=== PATIENT | female | born 1985 | race Caucasian/White ===

== ENCOUNTER → 2017-06-29 15:52 | Outpatient (CLI) | payer BC, SELFPAY ==
[2017-07-04 14:47] LABS: HPV APTIMA, High Risk Negative (Negative)
== END ==
PROVIDERS: Visit Provider Obstetrics & Gynecology
DX: Z12.4 Encounter for screening for malignant neoplasm of cervix (principal)
CPT/HCPCS: 88175; G0145

== ENCOUNTER → 2017-12-30 11:40 | Outpatient (CLI) | payer BC, SELFPAY ==
[2017-12-30 13:54] LABS: Absolute Lymphocyte Count 2.16 X10^3/ul (0.83-4.51); Absolute Neutrophil Count 2.7 X10^3/uL (2.0-7.7); Basophil# 0.09 X10^3/uL; Basophil% 1.6 % (0-1); Eosinophil# 0.26 X10^3/uL; Eosinophils% 4.7 % (0-5); Hematocrit 40.2 % (37-47); Hemoglobin 13.2 g/dl (12.0-15.0); Lymphocyte # 2.16 X10^3/ul (4.0); Lymphocyte % 39.1 % (19-41); Mean Corp Hgb Conc 32.8 g/gl (32-36); Mean Corpuscular Hgb 28.7 pg (27.0-32.0); Mean Corpuscular Volume 87.4 fL (81-99); Mean Platelet Vol. 12.5 fl (6.2-12.0); Monocyte# 0.31 X10^3/uL; Monocyte% 5.6 % (0-10); Platelet Count 177 K/mm3 (150-450); RBC Distribution Width CV 12.5 % (11.6-14.6); RBC Distribution Width SD 40.2 fl (35.1-43.9); White Blood Count 5.5 K/mm3 (4.4-11.0)
[2017-12-30 13:55] LABS: POSITIVE COUNT NO; POSITIVE DIFFERENTIAL NO; POSITIVE MORPHOLOGY NO
[2017-12-30 15:15] LABS: ALB/GLOB Ratio 1.1 RATIO (0.9-2.4); AST(SGOT) 15 U/L (15-37); Alanine Aminotransfer ALT/SGPT 17 U/L (13-56); Albumin, Serum 3.9 g/dL (3.2-5.0); Alkaline Phosphatase 34 U/L (45-117); Anion Gap 11 (5-15); BUN 9 mg/dL (7-18); BUN/Creat Ratio 11.2 RATIO (10-20); Calcium,Total 8.8 mg/dL (8.5-10.1); Chloride 103 mmol/L (98-107); EST Glomerular Filtration Rate 87 mL/min (>60); Est Glom Filt Rate - Afr Amer 105 mL/min (>60); Ferritin 10 ng/mL (8-252); Globulin 3.5 g/dL (2.2-4.2); Glucose 70 mg/dL (74-106); Potassium 3.6 mmol/L (3.5-5.1); Protein, Total 7.4 g/dL (6.4-8.2); Sodium Level 141 mmol/L (136-145); Thyroid Stim Hormone (TSH) 1.57 uIU/mL (0.358-3.74)
[2018-01-02 20:13] LABS: Endomysial Antibody IgA Negative (Negative)
[2018-01-03 12:58] LABS: Deamidated Gliadin IgA 3 units (0-19); Deamidated Gliadin IgG 3 units (0-19); Immunoglobulin A 226 mg/dL (87-352); t-Transglutaminase IgA <2 U/mL (0-3)
[2018-01-03 16:09] LABS: Alternaria alternata 0.35 kU/L (Class I); Aspergillus fumigatus <0.10 kU/L (Class 0); Bahia Grass <0.10 kU/L (Class 0); Beef <0.10 kU/L (Class 0); Bermuda Grass <0.10 kU/L (Class 0); Bluegrass, Kentucky <0.10 kU/L (Class 0); Cat Hair/Dander, Standard 1.44 kU/L (Class III); Cedar, Mountain <0.10 kU/L (Class 0); Cladosporium herbarum <0.10 kU/L (Class 0); Cockroach, American <0.10 kU/L (Class 0); Corn <0.10 kU/L (Class 0); D farinae Mite <0.10 kU/L (Class 0); D pteronyssinus <0.10 kU/L (Class 0); Dog Epithelia <0.10 kU/L (Class 0); Egg, Whole <0.10 kU/L (Class 0); Elm, American White <0.10 kU/L (Class 0); Hazelnut Tree <0.10 kU/L (Class 0); Hickory, White <0.10 kU/L (Class 0); Johnson Grass <0.10 kU/L (Class 0); Maple/Box Elder <0.10 kU/L (Class 0); Milk (Cow) 0.53 kU/L (Class I); Mucor racemosus <0.10 kU/L (Class 0); Mugwort <0.10 kU/L (Class 0); Mulberry, White <0.10 kU/L (Class 0); Nettle <0.10 kU/L (Class 0); Oak, White <0.10 kU/L (Class 0); Peanut <0.10 kU/L (Class 0); Penicillium chrysogen <0.10 kU/L (Class 0); Pigweed, Rough <0.10 kU/L (Class 0); Plantain, English <0.10 kU/L (Class 0); Pork <0.10 kU/L (Class 0); Ragweed, Short/Common <0.10 kU/L (Class 0); Sheep Sorrel(Dock) <0.10 kU/L (Class 0); Soybean <0.10 kU/L (Class 0); Stemphylium herbarum <0.10 kU/L (Class 0); Sweet Gum <0.10 kU/L (Class 0); Sycamore, American <0.10 kU/L (Class 0); Wheat 0.18 kU/L (Class 0/I)
[2018-01-04 10:38] LABS: Chocolate <0.10 kU/L (Class 0)
== END ==
PROVIDERS: Family Provider Family Medicine; PCP Family Medicine; Visit Provider Family Medicine
DX: K20.0 Eosinophilic esophagitis (principal); J30.9 Allergic rhinitis, unspecified; R51 Headache
CPT/HCPCS: 36415; 80053; 82728; 82746; 82784; 83516; 84443; 85025; 86003; 86005; 86255

== ENCOUNTER → 2018-05-19 11:45 | Outpatient (CLI) | payer BC, SELFPAY ==
[2016-05-12 11:44] VITALS: BMI 30.9
[2018-05-19 15:05] LABS: Ferritin 35 ng/mL (8-252); Iron 63 ug/dL (50-170); Iron Binding Capacity,Total 302 ug/dL (250-450)
== END ==
PROVIDERS: Family Provider Family Medicine; PCP Family Medicine; Visit Provider Family Medicine
DX: E61.1 Iron deficiency (principal)
CPT/HCPCS: 36415; 82728; 83540; 83550

== ENCOUNTER → 2018-10-09 15:45 | Outpatient (CLI) | payer BC, SELFPAY ==
--- NOTE | 2018-10-09 | EGD_PTH ---
PATIENT: EUNICEJULY NEL LOC: [facility] U#:[id number] AGE/SX: 40/F ROOM: RE10/09/[address]: Dr. Renato Portillo MD : 1985 BED: DIS: SPEC #: [id number] RECD: 10/09/18 15:15 STATUS: NANY CARREON #: [id number] SACHIN: 10/09/18 00:[address]: Renato Portillo DEPT: SURGICAL PATHOLOGY RECD BY: Jin Douglas ENTERED: 10/10/18 09:34 SP TYPE: EGD BIOPSY OT DR: Dr. Tom Weems MD [facility] Tissues: Esophagus, NOS Procedures: Surgery Specimen Level IV HEADER OPERATION: EGD with biopsy PRE-OP DIAGNOSIS: History of EE TISSUE SUBMITTED: Esophagus biopsy, rule out active EE MICROSCOPIC DIAGNOSIS Esophagus, biopsy: Hypertrophic squamous esophageal mucosa with focally increased eosinophils, consistent with active eosinophilic esophagitis. Eosinophil count focally up to 25-30 eosinophils / HPF. No glandular mucosa present. Clinical correlation is indicated. FA:rena 10/11/18 MICROSCOPIC DESCRIPTION Slides are reviewed. GROSS DESCRIPTION Received in fixative is one container labeled with the patient's name and designated esophagus. The specimen consists of multiple pinkish-huston biopsy fragments measuring 1 to 2 mm in greatest dimension. The specimen is totally submitted in one cassette. / FA:rena 10/10/18 TC:3 CPT: 97019
== END ==
PROVIDERS: Family Provider Family Medicine; PCP Family Medicine; Referring Provider Internal Medicine Gastroenterology; Visit Provider Internal Medicine Gastroenterology
DX: Z87.19 Personal history of other diseases of the digestive system (principal)
CPT/HCPCS: 88305

== ENCOUNTER → 2018-10-23 17:23 | Outpatient (CLI) | payer BC, SELFPAY ==
[2016-05-12 11:44] VITALS: BMI 30.9
== END ==
PROVIDERS: Family Provider Family Medicine; PCP Family Medicine; Visit Provider Nurse Practitioner Family
DX: R35.0 Frequency of micturition (principal)
CPT/HCPCS: 87086; 87088; 87186

== ENCOUNTER → 2018-11-16 11:35 | Outpatient (CLI) | payer BC, SELFPAY ==
[2016-05-12 11:44] VITALS: BMI 30.9
[2018-11-16 14:05] LABS: Absolute Lymphocyte Count 2.42 X10^3/uL (0.83-4.51); Absolute Neutrophil Count 3.1 X10^3/uL (2.0-7.7); Basophil# 0.07 X10^3/uL; Basophil% 1.1 % (0-1); Eosinophil# 0.22 X10^3/uL; Eosinophils% 3.4 % (0-5); Hematocrit 41.3 % (37-47); Hemoglobin 14.1 g/dL (12.0-15.0); Lymphocyte # 2.42 X10^3/ul (4.0); Lymphocyte % 37.9 % (19-41); Mean Corp Hgb Conc 34.1 g/dL (32-36); Mean Corpuscular Hgb 30.3 pg (27.0-32.0); Mean Corpuscular Volume 88.6 fL (81-99); Mean Platelet Vol. 12.3 fl (6.2-12.0); Monocyte# 0.52 X10^3/uL; Monocyte% 8.2 % (0-10); NRBC Flagged by Analyzer 0 % (0-5); Neutrophil # 3.13 X10^3/uL (2.7-7.7); Neutrophil % 49.1 % (47-70); Platelet Count 157 K/mm3 (150-450); RBC Distribution Width CV 11.9 % (11.6-14.6); RBC Distribution Width SD 38.5 fl (35.1-43.9); Red Blood Count 4.66 M/mm3 (4.2-5.4); White Blood Count 6.4 K/mm3 (4.4-11.0)
[2018-11-16 14:26] LABS: Vitamin B12 417 pg/mL (211-911)
[2018-11-16 14:59] LABS: ALB/GLOB Ratio 1.1 RATIO (0.9-2.4); AST(SGOT) 14 U/L (15-37); Alanine Aminotransfer ALT/SGPT 22 U/L (13-56); Albumin, Serum 3.9 g/dL (3.2-5.0); Alkaline Phosphatase 23 U/L (45-117); Anion Gap 7 (5-15); BUN 14 mg/dL (7-18); BUN/Creat Ratio 15.5 RATIO (10-20); Chloride 105 mmol/L (98-107); Cholesterol 133 mg/dL (200); EST Glomerular Filtration Rate 76 mL/min (>60); Est Glom Filt Rate - Afr Amer 92 mL/min (>60); Ferritin 16 ng/mL (8-252); Globulin 3.5 g/dL (2.2-4.2); Glucose 82 mg/dL (74-106); High Density Lipoprotein 73 mg/dL; Protein, Total 7.4 g/dL (6.4-8.2); Sodium Level 137 mmol/L (136-145); Thyroid Stim Hormone (TSH) 2.09 uIU/mL (0.358-3.74); Triglycerides 42 mg/dL; Very Low Density Lipoprotein 8 mg/dL (5-40)
== END ==
PROVIDERS: Family Provider Family Medicine; PCP Family Medicine; Referring Provider Family Medicine; Visit Provider Family Medicine
DX: Z00.00 Encounter for general adult medical examination without abnormal findings (principal); K20.0 Eosinophilic esophagitis; D50.8 Other iron deficiency anemias
CPT/HCPCS: 36415; 80053; 80061; 82607; 82728; 82746; 84443; 85025

== ENCOUNTER → 2018-12-21 16:07 | Outpatient (CLI) | payer BC, SELFPAY ==
[2016-05-12 11:44] VITALS: BMI 30.9
[2018-12-21 20:08] LABS: Chlamydia Trachomatis by PCR Negative (Negative); Neisserai gonorrhoeae by PCR Negative (Negative); Probe Check PASS; Sample Adequacy Control PASS; Specimen Processing Control PASS
== END ==
PROVIDERS: Visit Provider Obstetrics & Gynecology
DX: Z11.3 Encounter for screening for infections with a predominantly sexual mode of transmission (principal)
CPT/HCPCS: 87491; 87591

== ENCOUNTER → 2018-12-28 15:12 | Outpatient (CLI) | payer BC, SELFPAY ==
[2016-05-12 11:44] VITALS: BMI 30.9
[2018-12-28 16:37] LABS: Color, Urine Yellow (Yellow); Glucose, Dipstick 100 mg/dl (Normal); Ketone-Dipstick Negative (Negative); Leukocyte Esterase-Dipstick Negative /ul (Negative); Nitrite-Dipstick Negative (Negative); Occult Blood-Urine Negative /ul (Negative); Protein-Dipstick Negative (Negative); Specific Gravity, Urine 1.025 (1.002-1.030); Urine Bilirubin Dipstick Negative (Negative); Urine Clarity Sl. Cloudy (Clear); Urine Urobilinogen Normal (Normal)
[2018-12-28 16:45] LABS: Absolute Neutrophil Count 6.3 X10^3/uL (2.0-7.7); Basophil# 0.07 X10^3/uL; Basophil% 0.7 % (0-1); Eosinophil# 0.31 X10^3/uL; Eosinophils% 3.3 % (0-5); Hematocrit 40.8 % (37-47); Hemoglobin 13.9 g/dL (12.0-15.0); Lymphocyte % 21.2 % (19-41); Mean Corp Hgb Conc 34.1 g/dL (32-36); Mean Corpuscular Hgb 30.2 pg (27.0-32.0); Mean Corpuscular Volume 88.7 fL (81-99); Mean Platelet Vol. 12.4 fl (6.2-12.0); Monocyte# 0.68 X10^3/uL; Monocyte% 7.2 % (0-10); NRBC Flagged by Analyzer 0 % (0-5); Neutrophil # 6.34 X10^3/uL (2.7-7.7); Neutrophil % 67.2 % (47-70); Platelet Count 191 K/mm3 (150-450); RBC Distribution Width CV 11.9 % (11.6-14.6); RBC Distribution Width SD 37.8 fl (35.1-43.9); White Blood Count 9.4 K/mm3 (4.4-11.0)
[2018-12-28 17:31] LABS: Thyroid Stim Hormone (TSH) 1.69 uIU/mL (0.358-3.74)
[2018-12-29 01:46] LABS: Prenatal RPR NONREACTIVE (NONREACTIVE)
[2018-12-29 14:06] LABS: HIV - WCH Non-Reactive (Nonreactive); Hepatitis B Surface Antigen Non-Reactive (Nonreactive); Hepatitis C Antibody Non-Reactive (Nonreactive); Rubella IgG 75.1 IU/mL
== END ==
PROVIDERS: Visit Provider Obstetrics & Gynecology
DX: Z34.81 Encounter for supervision of other normal pregnancy, first trimester (principal)
CPT/HCPCS: 36415; 81002; 84443; 85025; 86703; 86762; 86803; 87340

== ENCOUNTER → 2019-02-28 11:02 | Outpatient (CLI) | payer BC, SELFPAY ==
[2016-05-12 11:44] VITALS: BMI 30.9
== END ==
PROVIDERS: Visit Provider Obstetrics & Gynecology
DX: Z34.82 Encounter for supervision of other normal pregnancy, second trimester (principal)
CPT/HCPCS: 36415

== ENCOUNTER → 2019-03-02 10:51 | Outpatient (CLI) | payer BC, SELFPAY ==
[2016-05-12 11:44] VITALS: BMI 30.9
== END ==
PROVIDERS: Family Provider Family Medicine; PCP Family Medicine; Referring Provider Obstetrics & Gynecology; Visit Provider Obstetrics & Gynecology
DX: Z34.82 Encounter for supervision of other normal pregnancy, second trimester (principal)
CPT/HCPCS: 36415

== ENCOUNTER → 2019-05-03 15:03 | Outpatient (CLI) | payer BC, SELFPAY ==
[2016-05-12 11:44] VITALS: BMI 30.9
[2019-05-03 15:44] LABS: Hematocrit 36.1 % (37-47); Mean Corp Hgb Conc 33.2 g/dL (32-36); Mean Corpuscular Hgb 29.3 pg (27.0-32.0); Mean Corpuscular Volume 88.3 fL (81-99); Mean Platelet Vol. 11.7 fl (6.2-12.0); Platelet Count 155 K/mm3 (150-450); RBC Distribution Width CV 12.3 % (11.6-14.6); RBC Distribution Width SD 39.4 fl (35.1-43.9); Red Blood Count 4.09 M/mm3 (4.2-5.4)
[2019-05-03 15:50] LABS: Glucose Challenge Gest 1H 50g 86 mg/dL (70-140)
== END ==
PROVIDERS: PCP Family Medicine; Visit Provider Obstetrics & Gynecology
DX: Z34.83 Encounter for supervision of other normal pregnancy, third trimester (principal)
CPT/HCPCS: 36415; 82950; 85027

== ENCOUNTER → 2019-07-05 15:25 | Outpatient (CLI) | payer BC, SELFPAY ==
[2016-05-12 11:44] VITALS: BMI 30.9
== END ==
PROVIDERS: PCP Family Medicine; Visit Provider Obstetrics & Gynecology
DX: Z36.85 Encounter for antenatal screening for Streptococcus B (principal)
CPT/HCPCS: 87081

== ENCOUNTER 2019-07-25 06:52 | Inpatient (IN) | payer BC, SELFPAY ==
[2019-07-25] VITALS (46 sets, daily range): BP systolic 95–186; BP diastolic 52–119; PULSE 58–131; TEMP 36.2–38.1; O2SAT 96–100; BMI 30.6
[2019-07-25] MEDS: Lactated Ringers 1,000 ML 50 ML IV (07:30)
[2019-07-25 07:47] LABS: Absolute Lymphocyte Count 2.31 X10^3/uL (0.83-4.51); Absolute Neutrophil Count 5.8 X10^3/uL (2.0-7.7); Basophil# 0.06 X10^3/uL; Basophil% 0.6 % (0-1); Eosinophil# 0.22 X10^3/uL; Eosinophils% 2.3 % (0-5); Hematocrit 36.3 % (37-47); Hemoglobin 11.8 g/dL (12.0-15.0); Lymphocyte # 2.31 X10^3/ul (4.0); Lymphocyte % 24.4 % (19-41); Mean Corp Hgb Conc 32.5 g/dL (32-36); Mean Corpuscular Hgb 27.1 pg (27.0-32.0); Mean Corpuscular Volume 83.4 fL (81-99); Monocyte# 0.97 X10^3/uL; Monocyte% 10.2 % (0-10); NRBC Flagged by Analyzer 0 % (0-5); Neutrophil # 5.84 X10^3/uL (2.7-7.7); Neutrophil % 61.7 % (47-70); Platelet Count 144 K/mm3 (150-450); RBC Distribution Width CV 13.3 % (11.6-14.6); RBC Distribution Width SD 39.6 fl (35.1-43.9); Red Blood Count 4.35 M/mm3 (4.2-5.4); White Blood Count 9.5 K/mm3 (4.4-11.0)
[2019-07-25] MEDS: Oxytocin 30 units/NS 500 ml 30 UNITS/500 ML IV.SOLN IV (08:12)
--- NOTE | 2019-07-25 09:38 | PCM.HP.OB ---
- Problem List (1) 39 weeks gestation of Status: Acute History Date of Admission: 07/25/19 Final FRANCISCA: 07/31/19 Final FRANCISCA Source: US <20 weeks Gestational age: 39 Weeks and 1 Days History of this : This is a 34 year-old, G [2], P [1], at 39.1 weeks gestational age presents for elective induction of labor. Medical History: Medical History (Last Updated 07/25/19 @ 09:[address] Mile Morin MD) Eosinophilic esophagitis K20.0 Surgical History: Surgical History (Last Updated 07/25/19 @ 09:[address] Mile Morin MD) H/O LEEP Z98.890 2014 - CINIII Allergies milk Allergy (Verified 05/12/16 12:05) Other IRAQI NUTS Allergy (Uncoded 05/12/16 12:05) Anaphylaxis DYCYCLOMINE Allergy (Uncoded 05/12/16 12:05) Other Home Medications: Home Medications Pantoprazole Sodium [Protonix] 40 mg PO DAILY 05/24/13 Vits [Prenatabs FA] 1 tablet PO DAILY 05/12/16 Smoking Status: Never smoker Alcohol: None Number of Fetus(es): 1 NST - FHR Rate Baby A Baseline: 140 Variability:: Moderate Accelerations:: 15 x 15 Decelerations:: None NST Reactive:: Yes FHR Category:: Category I Uterine Activity:: 2-3/10 History Past Pregnancies: Past Pregnancies Delivery Date Name GA/ Weeks Outcome Route Wt Sex Labor Length Anesthesia Delivery Location Provider FOB 05/12/2016 [place] 40 Living VAVD [id number] F [facility] Labs: Mom's Problem List Problem Status Onset Code 39 weeks gestation of Acute Z3A.39 Mom's Labs & Results 07/25/19 07/25/19 07:30 07:30 WBC 9.5 RBC 4.35 Hgb 11.8 L Hct 36.3 L MCV 83.4 MCH 27.1 MCHC 32.5 RDW Std Deviation 39.6 RDW Coeff of [place] 13.3 Plt Count 144 L MPV 13.0 H Immature Gran % (Auto) 0.800 Neut % (Auto) 61.7 Lymph % (Auto) 24.4 [place] % (Auto) 10.2 H Eos % (Auto) 2.3 Baso % (Auto) 0.6 Absolute Neuts (auto) 5.8 Absolute Lymphs (auto) 2.31 Nucleated RBC % 0 Blood Type Pending Antibody Screen Pending Course Did the patient receive Yes care? Labs Blood Type: A RH: POSITIVE RPR/VDRL/Syphilis Nonreactive Rubella status Immune HbSAg Negative Date Done: 12/28/18 Chlamydia Negative Gonorrhea Negative HIV/AIDS Non-Reactive Group B Strep: Negative Current Obstetrical History Gestational Diabetes No Incompetent Cervix No Infertility No IUGR No Macrosomia No Hypertension/Pre-eclampsia No Placenta Previa/Abruption No PTL/PROM No Uterine anomaly No Oligohydramnios No Polyhydramnios No Multiple gestation No Past Medical History Asthma No Diabetes No Hypertension No Heart disease No Mitral valve prolapse No Neurologic/Seizure disorder/ No Migraines Kidney disease No Liver disease No Varicosities No Clotting disorders/Hx of DVT No Thyroid Dysfunction No Other medical diseases No Psychiatric disorders No Major trauma No Abnormal PAP smear Yes: pre cancerous cells Mammogram in the last 2 years No Social History Marital Status: Alleged father Dario Hx Smoking No Smoking Status Never smoker How long have you used na substances (years)? Expected Delivery Method: Spontaneous Vaginal Number of Visits: 12 Physical Exam Vitals: Vital Signs Temp Pulse BP Pulse Ox 98.6 F 80 106/55 L 97 07/25/19 09:22 07/25/19 09:23 07/25/19 09:23 07/25/19 09:22 Assessment/Plan All Active Problems (Last Updated 07/25/19 @ 09:[address] Mile Morin MD) 39 weeks gestation of (Acute) This is a 34 year-old, G [2], P [1], at 39 1/7 weeks gestational age. -Pitocin started per Dr. López - status reassuring
[2019-07-25] MEDS: Lactated Ringers 500 ML 999 ML IV (13:21)
[2019-07-25] MEDS: Lactated Ringers 1,000 ML 200 ML IV (14:39)
[2019-07-25] MEDS: fentaNYL-bupivacaine (epidural) 100 ML BAG EPIDURAL (15:02)
[2019-07-25] MEDS: Oxytocin 30 units/NS 500 ml 30 UNITS/500 ML IV.SOLN 334 UNITS IV (19:24)
--- NOTE | 2019-07-25 19:42 | PCM.OPRPT ---
Vaginal Delivery Maternal Presentation: Elective Induction Method of Induction: Pitocin, Amniotomy Amniotic Membrane Rupture Type: Artificial Amniotic Fluid Description: Clear Final FRANCISCA: 07/31/19 Final FRANCISCA Source: US <20 weeks Gestational age: 39 Weeks and 1 Days [place] doctor who attended delivery (if requested by OB): Humaira King Date of Procedure: 07/25/19 Pre-Operative Diagnosis: IUP Post-Operative Diagnosis: IUP Surgery/ Procedure Performed: Vacuum Assisted Vaginal Delivery Type of Anesthesia: Epidural Description of Procedure: Spontaneous vaginal delivery of a viable male infant with Apgars of 8/9 from an left occiput posterior presentation with clear amniotic fluid and normal three-vessel placenta. True knot in the cord. First-degree midline episiotomy extended to a second-degree midline laceration repaired with 3-0 Rapide suture under epidural. Kiwi vacuum used x4 gentle pulls from low outlet to expedite delivery of the head due to deep decelerations with contractions and increasing maternal fatigue. 1 pop-off. Sponges okay. Delivery physician: Reji López MD. Presentation: Vertex Placental Delivery Description: Spontaneous Placenta Disposition: [facility] Cord Vessel Description: 3 Vessels Cord Entanglement: Around neck x 1, tight, True Knot(s) - x 1 Estimated Blood Loss: 250 cc Infant A gender: Male (1 minute): 8 (5 minute): 9 Episiotomy Description: Midline, 1st degree Laceration: Midline, 2nd degree Medications given after delivery: IV Pitocin Complications: None
--- NOTE | 2019-07-25 19:47 | DCINST_ITS ---
Discharge Diet: No Restrictions Discharge Activity: May Shower, May Take a Tub Bath May resume sexual activity in: 4-6 weeks Additional Activity Instructions:: Nothing in the vagina for 4-6 weeks. You may return to work/school in 6 weeks. Call your doctor if you observe: Inability to urinate, Inability to have a bowel movement, Using more than one pad per hour Additional Instructions: If you experience any of the following, contact your healthcare provider. * Bleeding that soaks a pad every hour for 2 hours * Fever 100.4 or higher * Unrelieved incision or abdominal pain * Swelling, redness, discharge or bleeding from your incision or episiotomy site * Your incision begins to separate * Problems urinating (including inability to urinate or burning while urinating). * Visual changes * Severe headache * Flu-like symptoms * Pain or redness in one of both of your breasts * Pain, warmth, tenderness or swelling in your legs, especially the calf area * Frequent nausea and vomiting * Symptoms of depression or anxiety If you experience any of the following, call 911 or go to the nearest Emergency Room. * Chest pain * Problems breathing * Seizure activity * Partial or complete paralysis of a body part, slurred speech, weakness or drooping of the face, or a sudden inability to walk or hold your balance Allergies/Adverse Reactions: Allergies milk Allergy (Verified 05/12/16 12:05) Other URUGUAYAN NUTS Allergy (Uncoded 05/12/16 12:05) Anaphylaxis DYCYCLOMINE Allergy (Uncoded 05/12/16 12:05) Other Medications to take at Discharge Pantoprazole Sodium [Protonix] 40 mg PO DAILY 05/24/13 Vits [Prenatabs FA] 1 tablet PO DAILY 05/12/16 Please Follow Up With: Reji López MD - [phone] When: Call to make an appointment with your doctor in 6 weeks. Primary Care Physician: Tom Weems MD [Primary Care Provider] - Test Results: Test results from this visit will be discussed in further detail at your follow- up appointment, if applicable.
--- NOTE | 2019-07-25 19:47 | PCM.DCVAG ---
Discharge Diet: No Restrictions Discharge Activity: May Shower, May Take a Tub Bath May resume sexual activity in: 4-6 weeks Additional Activity Instructions:: Nothing in the vagina for 4-6 weeks. You may return to work/school in 6 weeks. Call your doctor if you observe: Inability to urinate, Inability to have a bowel movement, Using more than one pad per hour Additional Instructions: If you experience any of the following, contact your healthcare provider. Bleeding that soaks a pad every hour for 2 hours Fever 100.4 or higher Unrelieved incision or abdominal pain Swelling, redness, discharge or bleeding from your incision or episiotomy site Your incision begins to separate Problems urinating (including inability to urinate or burning while urinating). Visual changes Severe headache Flu-like symptoms Pain or redness in one of both of your breasts Pain, warmth, tenderness or swelling in your legs, especially the calf area Frequent nausea and vomiting Symptoms of depression or anxiety If you experience any of the following, call 911 or go to the nearest Emergency Room. Chest pain Problems breathing Seizure activity Partial or complete paralysis of a body part, slurred speech, weakness or drooping of the face, or a sudden inability to walk or hold your balance Allergies/Adverse Reactions: Allergies milk Allergy (Verified 05/12/16 12:05) Other JORDANIAN NUTS Allergy (Uncoded 05/12/16 12:05) Anaphylaxis DYCYCLOMINE Allergy (Uncoded 05/12/16 12:05) Other Medications to take at Discharge Pantoprazole Sodium [Protonix] 40 mg PO DAILY 05/24/13 Vits [Prenatabs FA] 1 tablet PO DAILY 05/12/16 Please Follow Up With: Reji López MD - [phone] When: Call to make an appointment with your doctor in 6 weeks. Primary Care Physician: Tom Weems MD [Primary Care Provider] - Test Results: Test results from this visit will be discussed in further detail at your follow-up appointment, if applicable.
[2019-07-25] MEDS: 0.9% Saline Lock 10 ML Syringe IV (22:10)
--- NOTE | 2019-07-25 23:55 | NURSING ---
LUIS cut barber at delivery.
[2019-07-26] VITALS (11 sets, daily range): BP systolic 105–117; BP diastolic 69–79; PULSE 69–80; RESP 16; TEMP 36.5–37; O2SAT 99
[2019-07-26] MEDS: Pantoprazole Sodium 40 MG Tablet PO (10:32)
--- NOTE | 2019-07-26 11:27 | PCM.PN.OB ---
Patient Problems: Active and Suspected Problems (Last Updated 07/25/19 @ 09:[address] Mile Morin MD) 39 weeks gestation of (Acute) Subjective: Patient without complaints. Breast-feeding going well. Wants to go home later today if possible. - Physical Exam Vitals/I&O's: Vital Signs Temp Pulse Resp BP Pulse Ox 97.8 F 75 16 105/69 100 07/26/19 08:00 07/26/19 08:00 07/26/19 08:00 07/26/19 08:00 07/25/19 21:16 Oxygen Delivery Method Room Air Weight: 173 lb Body Mass Index (BMI) 30.6 Intake and Output for Last 24 Hours 07/24/19 07/25/19 07/26/19 23:59 23:59 23:59 Intake Total 3071.47 / 3071.47 Output Total 1450 / 1450 800 / 800 Balance 1621.47 / 1621.47 -800 / -800 Laboratory Results 07/25/19 07:30: Blood Type A POSITIVE, Antibody Screen NEGATIVE Current Medications Acetaminophen (Tylenol) 1,000 mg PO Q8H PRN PRN PRN Reason: Pain Score 1-3/10 Bisacodyl (Dulcolax) 10 mg RECTAL UD PRN PRN Reason: If no BM Dibucaine (Dibucaine) 1 applic TOPICAL TID PRN PRN; Protocol PRN Reason: Discomfort Hydrocortisone (Hytone) 1 applic TOPICAL TID PRN PRN; Protocol PRN Reason: Discomfort Ibuprofen (Motrin) 600 mg PO Q6H PRN PRN PRN Reason: Pain Score 1-3/10 Methylergonovine Maleate (Methergine) 0.2 mg IM X1 PRN PRN Reason: Excess bleeding/uterine atony Ondansetron HCl (Zofran) 4 mg IV Q4H PRN PRN PRN Reason: Nausea Oxycodone HCl (Oxyir) 5 - 10 mg PO Q4H PRN PRN PRN Reason: Pain Score 4-10/10 Pantoprazole Sodium (Protonix) 40 mg PO DAILY KRISTIN Last Admin: 07/26/19 10:32 Dose: 40 mg Documented by: Senna/Docusate Sodium (Senokot-S, Roslyn-Colace) 1 - 2 tablet PO DAILY PRN PRN PRN Reason: Constipation Simethicone (Mylicon) 80 mg PO PCHS PRN PRN Reason: Indigestion/Stomach pain Sodium Chloride () 5 - 15 ml IV UD PRN PRN Reason: SALINE FLUSH Last Admin: 07/25/19 22:10 Dose: 10 ml Documented by: Zolpidem Tartrate (Ambien (Generic)) 5 mg PO QHS PRN PRN PRN Reason: Insomnia Medical Necessity - Tobacco Use Smoking Status: Never smoker Assessment/Plan All Active Problems (Last Updated 07/25/19 @ 09:[address] Mile Morin MD) 39 weeks gestation of (Acute) Doing well day #1 status post routine spontaneous vaginal delivery. Will discharge to home later today if baby is able to go with routine instructions.
[2019-07-26] MEDS: Ibuprofen 600 MG Tablet PO (13:08)
[2019-07-26] MEDS: Hydrocortisone 2.5% Crm 1 APPLIC TOPICAL (14:11)
[2019-07-27 01:08] VITALS: BP 116/79; PULSE 72; RESP 16; TEMP 36.5
[2019-07-27 01:09] VITALS: BP 116/79; PULSE 72
--- NOTE | 2019-07-27 08:51 | PCM.PN.BLA ---
Progress Note Went to visit patient, advised by support person that she was in the shower. Will see later today.
[2019-07-27 09:30] VITALS: BP 109/66; PULSE 85; RESP 16; TEMP 36.6; O2SAT 97
[2019-07-27 09:38] VITALS: BP 109/66; PULSE 79; PULSE 87; O2SAT 93; O2SAT 97
--- NOTE | 2019-07-27 09:50 | NURSING ---
at 0947, dr andrea patel phoned on cell phone and message left for him to call this nurse about discharge exam
--- NOTE | 2019-07-27 10:53 | NURSING ---
at 1050, per charge nurse, dr andrea patel not answering phone calls or texts. dr has a scheduled c/sec at [address] patel will be informed of dc order per dr knapp but no dc exam completed
[2019-07-27] MEDS: Pantoprazole Sodium 40 MG Tablet PO (11:23)
[2019-07-27] MEDS: Dibucaine 30 GM Tube 1 APPLIC TOPICAL (11:24)
--- NOTE | 2019-07-27 12:27 | NURSING ---
at 1224, dr amanda patel phoned and informed of pt needing to be seen [facility] did write a dc order but was unable to see pt due to pt being in the shower. dr patel. stated pt is ok to go home.
[2019-07-27 13:27] VITALS: BP 107/74; PULSE 70; O2SAT 98
[2019-07-27 13:30] VITALS: BP 107/74; PULSE 70; TEMP 37.2; O2SAT 98
== END 2019-07-27 14:30 | disposition home or self-care (01) | DRG 807 ==
PROVIDERS: Admitting Provider Obstetrics & Gynecology; PCP Family Medicine; Referring Provider Obstetrics & Gynecology; Visit Provider Obstetrics & Gynecology
DX: O75.81 Maternal exhaustion complicating labor and delivery (principal); Z37.0 Single live birth; O76 Abnormality in fetal heart rate and rhythm complicating labor and delivery; O70.1 Second degree perineal laceration during delivery; O69.2XX0 Labor and delivery complicated by other cord entanglement, with compression, not applicable or unspecified; Z3A.39 39 weeks gestation of pregnancy; Z86.001 Personal history of in-situ neoplasm of cervix uteri
CPT/HCPCS: 59025; 59050; 85025; 86850; 86900; 86901; 99218; J7120; A4216; G0378

== ENCOUNTER → 2019-09-26 16:45 | Outpatient (CLI) | payer BC, SELFPAY ==
[2019-07-25 07:17] VITALS: BMI 30.6
[2019-09-26 18:32] LABS: Progesterone Level 0.23 ng/mL (See Comment)
[2019-09-26 18:56] LABS: hCG Titer Quant., Serum < 1 mIU/mL (1-3)
== END ==
PROVIDERS: PCP Family Medicine; Visit Provider Obstetrics & Gynecology
DX: Z30.014 Encounter for initial prescription of intrauterine contraceptive device (principal)
CPT/HCPCS: 36415; 84144; 84702

== ENCOUNTER → 2020-11-26 16:09 | Outpatient (CLI) | payer BC, SELFPAY ==
[2019-07-25 07:17] VITALS: BMI 30.6
[2020-12-01 16:24] LABS: HPV APTIMA, High Risk Negative (Negative)
== END ==
PROVIDERS: PCP Family Medicine; Visit Provider Obstetrics & Gynecology
DX: Z12.4 Encounter for screening for malignant neoplasm of cervix (principal)
CPT/HCPCS: 87624; 88175; G0145

== ENCOUNTER → 2021-09-01 | Outpatient (CLI) | payer BC, SELFPAY ==
[2021-09-01 17:36] LABS: Absolute Lymphocyte Count 2.37 X10^3/uL (0.83-4.51); Absolute Neutrophil Count 4.3 X10^3/uL (2.0-7.7); Basophil# 0.09 X10^3/uL; Basophil% 1.2 % (0-1); Eosinophils% 5.2 % (0-5); Hematocrit 40.5 % (37-47); Hemoglobin 13.8 g/dL (12.0-15.0); Lymphocyte # 2.37 X10^3/ul (0.83-4.51); Lymphocyte % 30.8 % (19-41); Mean Corp Hgb Conc 34.1 g/dL (32-36); Mean Corpuscular Hgb 30.3 pg (27.0-32.0); Mean Platelet Vol. 12.4 fl (6.2-12.0); Monocyte# 0.57 X10^3/uL; Monocyte% 7.4 % (0-10); NRBC Flagged by Analyzer 0 % (0-5); Neutrophil # 4.25 X10^3/uL (2.7-7.7); Neutrophil % 55.1 % (47-70); Platelet Count 189 K/mm3 (150-450); RBC Distribution Width CV 11.9 % (11.6-14.6); RBC Distribution Width SD 38.5 fl (35.1-43.9); Red Blood Count 4.55 M/mm3 (4.2-5.4); White Blood Count 7.7 K/mm3 (4.4-11.0)
[2021-09-01 17:55] LABS: International Normalized Ratio 1.1; Prothrombin Time (Protime)PT. 13.6 SECONDS (11.7-14.9)
[2021-09-01 17:56] LABS: Partial Thromboplast Time 29.9 Seconds (24.1-36.2)
[2021-09-01 18:20] LABS: ALB/GLOB Ratio 1.2 RATIO (0.9-2.4); AST(SGOT) 13 U/L (15-37); Alanine Aminotransfer ALT/SGPT 21 U/L (13-56); Alkaline Phosphatase 33 U/L (45-117); Anion Gap 6 (5-15); BUN 13 mg/dL (7-18); BUN/Creat Ratio 13.8 RATIO (10-20); Chloride 107 mmol/L (98-107); Creatinine, Serum 0.94 mg/dL (0.55-1.02); EST Glomerular Filtration Rate 71 mL/min (>60); Est Glom Filt Rate - Afr Amer 85 mL/min (>60); Globulin 3.3 g/dL (2.2-4.2); Glucose 94 mg/dL (74-106); Protein, Total 7.3 g/dL (6.4-8.2); Sodium Level 139 mmol/L (136-145)
== END | disposition home or self-care (01) ==
LOC: MFPLAB 15:30
PROVIDERS: PCP Family Medicine; Visit Provider Family Medicine
DX: G40.909 Epilepsy, unspecified, not intractable, without status epilepticus (principal); Z01.818 Encounter for other preprocedural examination; K20.0 Eosinophilic esophagitis
CPT/HCPCS: 36415; 80053; 85025; 85610; 85730

== ENCOUNTER 2021-09-25 05:58 | Day surgery (SDC) | payer BC, SELFPAY ==
[2021-09-25] VITALS (7 sets, daily range): BP systolic 106–124; BP diastolic 75–91; PULSE 72–84; RESP 16–18; TEMP 36.4–36.9; O2SAT 100; BMI 26.9
[2021-09-25 06:38] LABS: Internal QC Validated? YES +Cl - CLEAR BKGD; Pregnancy, Urine Negative Negative
[2021-09-25] MEDS: Lactated Ringers 1,000 ML 15 ML IV (06:47)
[2021-09-25] MEDS: Cefazolin 2 GM in 0.9% Normal Saline 100 ML IV (07:29)
--- NOTE | 2021-09-25 07:32 | DCINST_ITS ---
Discharge Instructions Procedure Narrative: left foot bunion correction Diet Discharge Diet: No restrictions Activity Discharge Activity: May Not Drive (while on pain medication), May Shower (with use of shower bag) and Use Crutches Ice area for (Minutes): 15 (apply behind knee each hour) Weight Bearing Status: No weight bearing Keep extremity elevated above heart level: Left Leg Dressing / Incision Call your doctor if your incision/area has: Continuous Slow Oozing, Sudden Incre ased Bleeding, Increased Pain/ Swelling, Increased Redness, Foul Smelling Discharge and Swelling at the incision site Call your doctor if you observe: Fever of 101 or Higher, Chest pain, Calf discomfort and Uncontrolled pain Cleanse incision/area with: Do not get Incision Wet Follow Up Care Please Follow Up With: Barbara Hurst DPM When: [facility]. Call [phone]. Test Results: Test results from this visit will be discussed in further detail at your follow-up appointment, if applicable. Discharge Plan Admission Attending Provider: Barbara Hurst Primary Care Provider: Tom Weems Discharge Orders/Prescriptions Prescriptions: New oxycodone-acetaminophen [Endocet] 5-325 mg tablet 1 tab PO Q8H PRN (Reason: pain) 7 Days Qty: 21 RF: 0 No Action pantoprazole 40 MG tablet 40 mg PO DAILY RF: 0 propranolol 160 mg Capsule,Extended Release 24 Hr 160 mg PO DAILY RF: 0 budesonide 1 mg/2 mL Suspension For Nebulization 1 mg INHALATION DAILY RF: 0 Referrals / Follow Up: Tom Weems MD [Primary Care Provider] - Disposition Disposition (needs filled in before D/C Order can be placed): Home, Self Care
--- NOTE | 2021-09-25 07:35 | RAD_ITS ---
STUDY: INTRAOPERATIVE FLUOROSCOPY TECHNIQUE: The examination was performed with referring physician in attendance. Under fluoroscopic observation, fluoroscopic images were obtained. Radiologist was not present for the study. Radiologist did not perform the procedure. This dictation is for documentation of the radiation dosage only. There is no interpretation of the images. TOTAL NUMBER OF IMAGES: 1 COMPARISON: None RADIATION DOSE: 1.3 mGy FLUOROSCOPY TIME: 58 seconds REASON FOR EXAM: ARTHRODESIS FUSION 1ST METATARSAL Female, 36 years old. FINDINGS: There is a metal sideplate transfixing the first tarsometatarsal joint. There are cortical screws holding the plate in place. RAD/Foot min 3 Views IMPRESSION: Fluoroscopic assistance images were obtained. Dictation for documentation purposes only. Electronically Signed: Darinel Rico MD at 15:21 EDT ,
[2021-09-25] MEDS: Lidocaine 1% (50 ml mdv) 50 ML Vial (07:37)
[2021-09-25] MEDS: Bupivacaine Mpf 0.5% 30 ML VIAL (07:37)
--- NOTE | 2021-09-25 10:32 | OP.PCM_ITS ---
Problems Associated Problem List Diagnoses (1) Left foot pain: (2) Hallux valgus (acquired), left foot: Report of Operation Date of Procedure: 09/25/21 Pre-Operative Diagnosis: Left hallux abductovalgus Post-Operative Diagnosis: Left hallux abductovalgus Surgery/Procedure Performed:: Left bunionectomy including arthrodesis of the first metatarsal cuneiform with internal fixation Description of Surgical Findings:: Hemostasis: Well-padded pneumatic left thigh tourniquet, 315 mmHg, 115 minutes Materials: Arthrex plantar Lapidus plate with locking and cortical screws (4) and one cannulated partially-threaded cancellous screw, 2-0 Vicryl, 2-0 Monocryl, 4-0 Monocryl, cancellous bone chips Specimens: None Complications: None The patient tolerated the procedure and anesthesia well. The patient was transported to the PACU with vital signs stable and vascular status intact to the surgical limb. To ice and elevate for pain and inflammation management. Postoperative x-rays were reviewed prior to leaving the operating room demonstrating hallux valgus deformity correction with hardware intact in the desired trajectory and position. No acute injuries are noted. The hallux is rectus and there is reduction of the sesamoid apparatus and reduced intermetatarsal angle. Postoperative orders were entered electronically. Surgeon: Barbara Hurst athletic equipment manager: None (Renato Smith DPM, PGY1) Type of Anesthesia: General and Local (Preop: 19 cc 1:1 mix 1% lidocaine plain and 0.5% Marcaine plain left ankle block fashion) Specimen's removed: none Drains: None Estimated Blood Loss (mL): <125 mL Description of Procedure: Indications: This 36-year-old female with significant past medical history of hypertension continues to have symptomatic painful left bunion deformity. She has pain on palpation to the prominent medial first metatarsal head eminence. Her pain is aggravated with walking and shoe gear use. She does have hypermobility of the first metatarsal tarsal articulation. Her neurovascular status is intact. Preoperative standing x-rays were reviewed with a lateral hallux deviation, large increased first intermetatarsal space, prominent medial first metatarsal eminence, lateral sesamoid apparatus appearance significant. No other acute pathology or injuries were noted. Preoperative H&P were reviewed including his diagnostic data. There is no gross abnormalities noted with labs. Preoperative indications, planned procedure, benefits, risk, anticipated healing time and management were reviewed. The patient understands and elects proceed with surgery at this time. No guarantees were made. The patient understands risk and complications include but are not limited to following: pain, swelling, scarring, need for further surgery, tendon contracture, transfer lesion, hardware failure, arthritis, need for further surgery, delayed or nonhealing, infection, blood clot, allergic reaction, loss of limb, function, or life. The informed surgical limb and consent were signed. Her clearance and preoperative history and physical exam were also reviewed. I answered all the patient's questions. The patient also understands there is an inherent risk with being in the hospital and undergoing a procedure during the time of COVID-19 pandemic. The patient understands precautions are being taken to prevent transmission. This patient understands the benefits and risks of having a procedure at this time versus waiting in which the benefits are reasonable at this time. Procedure in detail: The patient was transported to the operating room via cart and placed on the operating table in the supine position. Final verification the patient, surgery, limb designation was performed via the timeout procedure. Preoperative antibiotics were administered by the anesthesia team. General anesthesia was initially by the anesthesia team. I administered the preoperative local anesthetic as noted. Well-padded pneumatic left thigh tourniquet was placed. The left lower extremity was prepped and draped in the usual aseptic manner. An Esmarch bandage was used to exsanguinate the limb and the tourniquet was inflated at this time. Surgery began the following manner: Attention was first directed to the medial left foot in which an 8 cm linear incision was made through the skin from the midfoot to the medial aspect of the first metatarsophalangeal joint. Care was taken to identify, protect, and retract all neurovascular structures at this point and throughout the remainder of surgery. Blunt dissection was performed down to the layer between the abductor hallucis muscle belly and the first ray. The medial and dorsal aspect of the first metatarsal cuneiform joint were identified and the joint was entered and distracted. Care was taken to preserve the tibialis anterior tendon. The joint surfaces were denuded of cartilage. The surfaces were next prepared for arthrodesis with fish scaling, drilling, and removal of the subchondral rosario te. Healthy bleeding surfaces were identified. Next, a K wire was entered into the first metatarsal and used as a joystick to correct the deformity in a triplanar manner. This was temporarily fixated with tenaculum and additional K wires. The windlass mechanism was also recreated to gain good compression. Deformity correction was checked via fluoroscopy use. A small amount of cancellous bone chips were applied to the arthrodesis site to allow good approximation of bone surfaces. Next, a plantar lapidus plate was temporarily secured with BB tacks. Utilizing proper AO fixation technique, the distal aspect of the plate was secured to the bone with locking and cortical screws. Also, the arthrodesis site was further compressed and secured with a cancellous screw and this was applied according to typical AO standard technique. Solid fixation was viewed radiographically and clinically with corrected deformity position maintained. This screw was spanned to the middle cuneiform. The sesamoid apparatus were realigned, reduced first intermetatarsal space, and resolution of lateral hallux deviation. Next, the remainder of the proximal screw holes were filled with locking screws and this site was secured as one solid unit. Next, attention was directed to the first metatarsophalangeal joint level in which a sagittal saw was used to resect any hypertrophic remaining eminence that was now dorsal medially located. Care was taken to avoid staking the head. Her first metatarsophalangeal joint range of motion was next tested in a loaded and unloaded position and she had about 75 degrees of range of motion. The first ray was in a rectus position and additional osteotomies were also not deemed necessary at this time. Next, saline copious irrigation was performed. The capsulorrhaphy was performed at the level of the joint and capsular closure was performed with Monocryl and vicryl. The tourniquet was deflated at this time and brisk capillary refill time was noted to all digits of the left foot. No pulsatile bleeding was noted. Electrocauterization and direct pressure was used to control hemostasis. The skin was reapproximated with 4-0 Monocryl utilizing subcuticular technique. Steri-Strips were applied. A dressing consisting of Adaptic soaked in Betadine, 4 x 4 gauze, abdominal pads, and Oseas wrap. A well- padded posterior mold splint was applied in a rectus position. Intraoperative fluoroscopy was used throughout the bunion correction to confirm adequate hardware placement in the desired trajectory and position and also deformity correction. No acute injuries were noted. After procedure: The patient tolerated the procedure and anesthesia well. The patient was transported to the PACU with vital signs stable and vascular status intact to the surgical limb. To ice and elevate for pain and inflammation management. Postoperative x-rays were reviewed prior to leaving the operating room as noted. To maintain a strict nonweightbearing status to left foot. She has a splint in place and already has an assistive walking device. She was provided with a postoperative pain medication prescription including percocet and was advised on safe and proper use. She will follow-up in clinic [facility]. Postoperative orders were entered electronically. She will be discharged home. Barbara Hurst DPM, [facility] Grafts/Implants Used: Arthrex Complications None Admit VTE Documentation VTE Present on Admission: No VTE Mechan Device Prophylaxis: SCD's VTE Pharm Prophylaxis ordered?: No Reason prophylaxis not ordered:: Treatment Not Indicated
--- NOTE | 2021-09-25 10:42 | RAD_ITS ---
EXAM: XR LEFT FOOT COMPLETE, 3 OR MORE VIEWS CLINICAL INDICATION: s/p arthrodesis 1st mt cuneiform, lapidus TECHNIQUE: Frontal, lateral and oblique views of the left foot. This report was created using [email or web address] report [employer] technology. COMPARISON: None. FINDINGS: BONES/JOINTS: There is a metal sideplate transfixing the first tarsometatarsal joint. There are cortical screws holding the plate in place. No acute fracture. No subluxation. Normal alignment. No sclerotic or destructive changes observed. SOFT TISSUES: Overlying soft tissue air. No radiopaque foreign body. RAD/Foot min 3 Views IMPRESSION: There are postoperative changes. Electronically Signed: Darinel Rico MD at 15:34 EDT ,
[2021-09-25] MEDS: Acetaminophen 325 MG Tablet PO (11:54)
[2021-09-25] MEDS: oxyCODONE 5 MG Tablet PO (11:55)
== END 2021-09-25 13:21 | disposition home or self-care (01) ==
LOC: SDC 06:01 → AC 06:04
PROVIDERS: Anesthesiology; PCP Family Medicine; Referring Provider Podiatrist; Visit Provider Podiatrist
PROC: (CPT 28292; principal; 2021-09-25 07:15)
DX: M20.12 Hallux valgus (acquired), left foot (principal); G40.909 Epilepsy, unspecified, not intractable, without status epilepticus; I10 Essential (primary) hypertension; K21.9 Gastro-esophageal reflux disease without esophagitis; Z86.79 Personal history of other diseases of the circulatory system; K20.0 Eosinophilic esophagitis
CPT/HCPCS: 28297; 01480; 73630; 76000; 81025; C1713; J7120; J2405

== ENCOUNTER 2022-01-08 15:30 | Outpatient (RCR) | payer BC, SELFPAY ==
--- NOTE | 2021-11-16 17:11 | HP.PTEVAL ---
Patient's Visit Information YOLA DAWSON is a 36 year old F referred to Physical Therapy by Dr. Barbara Hurst DPM with a diagnosis of L foot bunionectomy with metatarsal repair. Date of Evaluation: 11/16/21 Physical Therapist: Darinel Agosto, PT, ATC - Visit Plan Frequency: 2-3x /Week Duration: 4-6 Weeks Plan: L great toe PROM/mobs, stretching and strengthening, balance and proprio, bike, and HEP - Subjective DOS: 09/25/21. Pt reports she had surgery to realign her first metatarsal and a bunionectomy performed at that time. Pt reports she was NWBing for the first 6 weeks, and is now allowed to be 30% at this time. 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 Pt reports she has no sleep difficulty secondary to pain. Pt reports she does have some numbness in her foot at this time. Pt reports she is into theater at this time and would like to return to it as soon as she is allowed. Pt also notes she is an avid walker, and would like to be able to go on walks again. Pt also notes she lives in a 2 story house and has to negotiate the stairs one step at a time. Pt reports she has a 5 and 2 year old child at home and is very limited with what she can do with them as well. 0/10 pain at rest, 2/10 at worst (with prolonged ambulation). - Pain L foot Pain Intensity (Out of 10): 0 Pain Intensity Range: 2 - Objective Neuro: B LE sensation is WNL to light touch. Girth:' L ankle 52 cm, R ankle 49 cm. ROM: L great toe ext= 60, flex= 45 degrees. R great toe ext= 6, flex= 15. MMT: R foot is 5/5 throughout. L ankle is 5/5, L great toes flex and ext is 2/5 and painful - Balance/Special Test Scores Lower Extremity Functional Score: 51 - Goals Goal 1:: Decrease L great toe pain x 50% to aid with ambulation Goal Time Frame: 4-6 Weeks Goal 2:: Increase L great toe ROM x 30 degrees to aid with restoring a more normalized gait pattern Goal Time Frame: 4-6 Weeks Goal 3:: Increase L foot strength x 1 grade to aid with stair negotiation Goal Time Frame: 4-6 Weeks Goal 4:: I with HEP Goal Time Frame: 4-6 Weeks - Rehabilitation Potential Physical Therapy Diagnosis: Pt has L foot pain, weakness, and limited great toe ROM secondary to R foot bunionectomy Rehabilitation Potential: Good - Anticipated Interventions Patient/Client Instruction: Educate patient on: Condition, Plan of Care For the Purpose of:: To improve self management Therapeutic Exercise to Include: Strength training, Endurance training, Balance training, Flexibilty training, Passive ROM, Active ROM For the Purpose of:: To decrease pain, To increase ROM, To improve muscle performance and motor function Cryotherapy (ice pack, ice massage): Yes For the Purpose of:: To decrease pain Thank you for the opportunity to evaluate your patient. For Medicare and Medicare HMO plans, please review the plan of care and approve it. It will need to be FAXED BACK to us at [phone] for Medicare purposes. For Medicare only, by signing this I certify the plan of care. Please let me know if there are questions or concerns regarding this plan of care. Physician Signature: Date:
--- NOTE | 2021-12-18 15:58 | HP.PTREVAL ---
Dr. Barbara Hurst, DPM, It has been my pleasure to treat YOLA DAWSON over the last 7 visits for L foot bunionectomy with metatarsal repair. Please see the progress note below for an update on the physical therapy plan of care! Subjective: I am feeling really improved, but i still need more PT Objective/Function: L foot pain is rated at 1-3/10 depending on the amount of activity she performs. L great toe ext and flex= 15 degrees. L ankle strength is groosly 4+/5 throughout. Pt is showing significant gains at this time with strength/pain/ROM Plan Plan: Cont with L LE stretching/strengthening, balance, and HEP Balance/Gait/Functional tests - Balance/Special Test Scores Lower Extremity Functional Score: 51 Goals Goal 1:: Decrease L great toe pain x 50% to aid with ambulation Goal Time Frame: 4-6 Weeks Goal Progress: Progressing Goal 2:: Increase L great toe ROM x 30 degrees to aid with restoring a more normalized gait pattern Goal Time Frame: 4-6 Weeks Goal 3:: Increase L foot strength x 1 grade to aid with stair negotiation Goal Time Frame: 4-6 Weeks Goal 4:: I with HEP Goal Time Frame: 4-6 Weeks Goal Progress: Progressing Anticipated Interventions Patient/Client Instruction: Educate patient on: Condition, Plan of Care For the Purpose of:: To improve self management Therapeutic Exercise to Include: Strength training, Endurance training, Balance training, Flexibilty training, Passive ROM, Active ROM For the Purpose of:: To decrease pain, To increase ROM, To improve muscle performance and motor function Cryotherapy (ice pack, ice massage): Yes For the Purpose of:: To decrease pain Please do not hesitate to contact me at [phone] by phone or if you have questions or concerns regarding this new plan of care! Sincerely, Darinel Agosto, PT, ATC
--- NOTE | 2022-03-23 14:29 | HP.PT.NRP ---
YOLA DAWSON was seen in my office for initial evaluation on 11/16/21. The following Plan of Care was established for this patient: Initial Frequency: 2-3x /Week Initial Duration: 4-6 Weeks Patient/Client Instruction: Educate patient on: Condition, Plan of Care For the Purpose of:: To improve self management Therapeutic Exercise to Include: Strength training, Endurance training, Balance training, Flexibilty training, Passive ROM, Active ROM For the Purpose of:: To decrease pain, To increase ROM, To improve muscle performance and motor function Cryotherapy (ice pack, ice massage): Yes For the Purpose of:: To decrease pain This patient was last seen in our office . Pertinent comments regarding their Physical therapy will appear below: Pt was treated for L foot pain for 11 PT visits through the date of 01/08/22. Pt has not returned through this date and is discontinued at this time. At this point I will be discontinuing this patient from physical therapy. I would be happy to see this patient again in the future if found appropriate by the physician. Thank you! Darinel Agosto, PT, ATC Balance/Gait/Functional tests - Balance/Special Test Scores Lower Extremity Functional Score: 65
== END 2022-01-08 19:00 | disposition home or self-care (01) ==
LOC: PT 15:30
PROVIDERS: PCP Family Medicine; Referring Provider Podiatrist; Visit Provider Podiatrist
DX: Z98.890 Other specified postprocedural states (principal)
CPT/HCPCS: 97110; 97140; 97161; 97164

== ENCOUNTER → 2023-04-01 | Outpatient (CLI) | payer BC, SELFPAY ==
--- NOTE | 2023-04-01 10:32 | RAD_ITS ---
STUDY: X-RAY - LEFT SHOULDER REASON FOR EXAM: Female, 38 years old. Shoulder pain. TECHNIQUE: 4 view(s) of the shoulder. COMPARISON: None. FINDINGS: Normal glenohumeral articulation. Normal acromioclavicular joint. Normal acromion. Normal humeral head and visualized proximal humerus. Normal soft tissues. Normal visualized pulmonary apex. RAD/Shoulder min 2 Views IMPRESSION: Normal x-ray examination of the shoulder. Electronically Signed: Dio Moise MD at 12:58 EST ,
== END | disposition home or self-care (01) ==
LOC: MTRAD 10:32
PROVIDERS: PCP Family Medicine; Referring Provider Family Medicine; Visit Provider Family Medicine
DX: S46.912A Strain of unspecified muscle, fascia and tendon at shoulder and upper arm level, left arm, initial encounter (principal)
CPT/HCPCS: 73030

== ENCOUNTER → 2024-10-01 | Outpatient (CLI) | payer BC, SELFPAY ==
[2024-10-01 18:03] LABS: Absolute Lymphocyte Count 2.73 X10^3/uL (0.83-4.51); Absolute Neutrophil Count 5.8 X10^3/uL (2.0-7.7); Basophil# 0.07 X10^3/uL; Basophil% 0.7 % (0-1); Eosinophil# 0.21 X10^3/uL; Eosinophils% 2.2 % (0-5); Hemoglobin 13.5 g/dL (12.0-15.0); Lymphocyte # 2.73 X10^3/ul (0.83-4.51); Lymphocyte % 28.5 % (19-41); Mean Corp Hgb Conc 33.8 g/dL (32-36); Mean Corpuscular Hgb 29.9 pg (27.0-32.0); Mean Corpuscular Volume 88.5 fL (81-99); Mean Platelet Vol. 12.1 fl (6.2-12.0); Monocyte# 0.71 X10^3/uL; Monocyte% 7.4 % (0-10); NRBC Flagged by Analyzer 0 % (0-5); Neutrophil # 5.83 X10^3/uL (2.7-7.7); Neutrophil % 60.9 % (47-70); Platelet Count 211 K/mm3 (150-450); RBC Distribution Width CV 11.9 % (11.6-14.6); RBC Distribution Width SD 38.2 fl (35.1-43.9); Red Blood Count 4.52 M/mm3 (4.2-5.4); White Blood Count 9.6 K/mm3 (4.4-11.0)
[2024-10-01 20:39] LABS: Hemoglobin A1c 5.1 % (<=5.6)
[2024-10-02 15:09] LABS: ALB/GLOB Ratio 1.6 RATIO (0.9-2.4); AST(SGOT) 18 U/L (<=31); Alanine Aminotransfer ALT/SGPT 14 U/L (<=34); Albumin, Serum 4.2 g/dL (3.5-5.0); Alkaline Phosphatase 49 U/L (35-104); Anion Gap 10 (5-15); BUN 11 mg/dL (4-19); BUN/Creat Ratio 11.6 RATIO (10-20); Calcium,Total 9.6 mg/dL (7.6-11.0); Carbon Dioxide 25.8 mmol/L (21.0-32.0); Chloride 101 mmol/L (98-108); Creatinine, Serum 0.92 mg/dL (0.70-1.20); EST Glomerular Filtration Rate 81 (>60); Globulin 2.7 g/dL (2.2-4.2); Glucose 87 mg/dL (70-99); Protein, Total 6.9 g/dL (5.9-8.4); Sodium Level 138 mmol/L (133-145); Total Bilirubin 0.21 mg/dL (0.00-1.30)
== END | disposition home or self-care (01) ==
LOC: MFPLAB 15:53
PROVIDERS: PCP Family Medicine
DX: R35.0 Frequency of micturition (principal)
CPT/HCPCS: 36415; 80053; 83036; 85025